=== PATIENT | female | born 1955 | race African-American/Black ===

== ENCOUNTER 2018-11-24 09:15 | Inpatient (IN) | payer OTHER ==
[~2018-11-24] VITALS: Ht 172.7 cm; Wt 62.1 kg
--- NOTE | ~2018-11-24 | EMS ---
[facility] [address] [place] [address] EMS Patient Care Report Name: LOY YBARRA Room #: REG [facility] Garcia#: [id number] Admission: 11/24/18 Attend Phys: Discharge: Date of : 55 Report #: [id number] THIS REPORT FOR: //name// Report Transmitted: 11/24/2018 10:16 EMS Care Summary [place], [place]/[facility] Incident [id number] @ 11/24/2018 08:46 Incident Location [address] Patient LOY MENDEZ Female, 62 Years 1955 Patient Address [facility] [address] [place] [address] Patient History Sickle Cell Disease, Chief Complaint Sickle cell crisis Disposition Transported No Lights/[place] Dispatch Reason Sick Person Transported To [facility] Narrative 62 y/o female with sickle cell crisis with abdominal pain. On arrival [facility] with [facility] staff on [facility]. Pt stated she woke up this morning with nausea/vomiting and right upper abdominal pain. Pt stated that she has sickle cell disease and that she is having a sickle cell crisis. Pt stated she would go to [facility] ED. P41/EMS transferred pt to stretcher and into ambulance. Once in ambulance EMS performed a 12-lead ECG and attempted an IV. [address] [address] EMS Patient Care Report Name: LOY YBARRA Room #: REG [facility].#: [id number] Admission: 11/24/18 Attend Phys: Discharge: Date of : 55 Report #: [id number] EMS monitored pt/VS/ECG en route to [facility] ED. Transferred care of pt to [facility] ED RN without incident. Initial Vitals @09:05P: 139,SpO2: 97, @09:10P: 146,BP: 120/82,SpO2: 100, @09:02P: 139,R: 30,BP: 131/79,Pain: 10/10,GCS: 15,CO: 6,SpO2: 98,Revised Trauma: 11, Assessments @08:56MENTAL:No Abnormalities,SKIN:No Abnormalities,HEENT:Head/Face: No Abnormalities,Eyes: No Abnormalities,Neck/Airway: No Abnormalities,LUNG SOUNDS:General: Vomiting,General: Nausea,Right Upper: Other,Left Upper: No Abnormalities,Left Lower: No Abnormalities,Right Lower: No Abnormalities,ABDOMEN:General: Vomiting,General: Nausea,Right Upper: Other,Left Upper: No Abnormalities,Left Lower: No Abnormalities,Right Lower: No Abnormalities,PELVIS//GI:No Abnormalities,EXTREMITIES:Capillary Refill: Left Upper: < 2 Sec,Left Arm: No Abnormalities,Right Arm: No Abnormalities,Left Leg: No Abnormalities,Right Leg: No Abnormalities,PULSE:Radial: 2+ Normal,NEURO:No Abnormalities, Impression Sickle Cell Crisis Procedures @09:0512-Lead ECGResponse: UnchangedSucceeded@08:56ALS AssessmentResponse: WorseSucceeded@09:03Saline Lock 10cc (20 ga) Site: Antecubital-LeftResponse: UnchangedSucceeded@PTAOxygen FlowRate: 4 Device: Nasal Cannula (NC) Response: UnchangedSucceeded 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 [address] [place] [address] EMS Patient Care Report Name: LOY YBARRA Room #: REG FREEMAN M.R.#: [id number] Admission: 11/24/18 Attend Phys: Discharge: Date of : 55 Report #: [id number] 09:10,BP: 120/82 M,PULSE: 146,RR: R,SPO2: 100 Ox,ETCO2: ,BG: ,PAIN: ,GCS: , 09:12,Depart Scene 09:13,At Destination 09:26,Call Closed Disclaimer v1.1 Copyright 2019 [employer] This EMS Care Summary contains data elements from the applicable legal record (which may be displayed differently). It is designed to provide pertinent information for the following purposes: continuity of care, clinical quality, and state data reporting. The complete legal record is available to ED staff and administrators of the receiving hospital in [employer] Patient Tracker. All data is provided "as is."
[2018-11-24 09:16] VITALS: BP 139/94
[2018-11-24 09:54] LABS: ABSOLUTE NEUTROPHILS 3.4 thou/uL (1.4-8.2); BASOPHILS 1.4 % (0.0-2.0); EOSINOPHILS 2.4 % (0.0-3.0); HEMATOCRIT 22.9 % (37.0-47.0); HEMOGLOBIN 8.2 gm/dL (12.0-15.0); MCHC 35.7 g/dL (28.0-37.0); MCV 109.4 fL (80.0-100.0); MONOCYTES 6.7 % (1.0-8.0); PLATELET COUNT 378 thou/uL (150-400); POLYS 55.5 % (36.0-66.0); RDW 28.2 % (10.5-14.5); WBC 6.1 thou/uL (4.0-11.0)
[2018-11-24 09:57] LABS: CALCIUM 10.2 mg/dL (8.5-10.1); CREATININE 1.3 mg/dL (0.6-1.0)
[2018-11-24 09:58] LABS: POTASSIUM 4.5 mmol/L (3.5-5.1)
[2018-11-24 10:08] LABS: ALBUMIN 3.9 g/dL (3.4-5.0); TOTAL BILIRUBIN 1.3 mg/dL (<0.1-1.0); TOTAL PROTEIN 9.3 g/dL (6.4-8.2); TROPONIN-I 0.07 ng/mL (<0.06)
[2018-11-24 10:32] LABS: ANISOCYTOSIS 1+; MACROCYTES 1+
[2018-11-24 10:54] LABS: OBSERVED RETIC COUNT 1.28 % (0.6-2.6)
[2018-11-24 13:33] LABS: URINE BILIRUBIN NEGATIVE (Negative); URINE BLOOD NEGATIVE (Negative); URINE CLARITY CLEAR; URINE COLOR YELLOW; URINE GLUCOSE-RANDOM* NEGATIVE (Negative); URINE KETONES NEGATIVE (Negative); URINE NITRITE-REFLEX NEGATIVE (Negative); URINE PROTEIN (DIPSTICK) NEGATIVE (Negative)
[2018-11-24 13:34] LABS: URINE LEUKOCYTES-REFLEX 2+ (Negative)
[2018-11-24 13:42] LABS: AMORPHOUS PHOSPHATES Few /LPF (None Seen); BACTERIA-REFLEX 1-9 Few /HPF (None Seen); CASTS None Seen /LPF (None Seen); SQUAMOUS None Seen /LPF (0-3); URINE RBC >20 Many /HPF (0-2)
[2018-11-24 14:01] VITALS: BP 125/90
[2018-11-24 14:25] VITALS: BP 126/84
[2018-11-24 14:45] VITALS: BP 139/93
--- NOTE | 2018-11-24 15:46 | NUR ---
PT ARRIVED TO UNIT AT APPROX 1500 BY ER STAFF ACCOMPANIED BY FAMILY. PT ALERT AND ORIENTED, VSS, PT C/O PAIN IN ABDOMEN- WILL MANAGE WITH PAIN MEDS PER MAR. ADMISSION COMPLETE. TELE PUT ON, ADMIT STRIP PRINTED AND DOCUMENTED. FAMILY AT BEDSIDE. WILL CONTINUE TO MONITOR AND FOLLOW POC.
[2018-11-24 18:24] VITALS: BP 149/77
--- NOTE | 2018-11-24 18:46 | NUR ---
PT CURRENTLY RESTING IN BED, FAMILY IN ROOM. C/O PAIN- MANAGED WITH PAIN MEDS PER JUN. RECORDS FAXED FROM [facility]ART. 02 SATS WNL ON 2L O2. DENIES SOB/CP. CONTINUOUS PULSE OX ON. SR ON MONITOR. WILL CONT TO MONITOR AND FOLLOW POC.
[2018-11-24 19:53] VITALS: BP 120/67
[2018-11-24] MEDS ORDERED: FOLIC ACID1 MG PO (20:13)
[2018-11-24] MEDS ORDERED: HYDREA500 MG PO (20:14)
[2018-11-24] MEDS ORDERED: D-20002000 UNIT PO (20:18)
[2018-11-24] MEDS ORDERED: ONDANSETRON HCL4 M2 PO (20:20)
[2018-11-24] MEDS ORDERED: TOPROL XL25 MG PO (20:20)
[2018-11-24] MEDS ORDERED: ZOFRAN4 MG PO (20:21)
[2018-11-24] MEDS ORDERED: OXYCODONE HCL10 MG PO (20:22)
[2018-11-24] MEDS ORDERED: OXYCONTIN20 M1 PO (20:23)
[2018-11-24] MEDS ORDERED: BENADRYL A12.5 MG/5 PO (20:24)
[2018-11-24] MEDS ORDERED: LIPITOR80 MG PO (20:25)
--- NOTE | 2018-11-25 04:06 | NUR ---
ASSESSMENT DOCUMENTED.PT BEEN RESTING IN NO ACUTE DISTRESS AT THIS TIME, SON AT BEDSIDE.O2 AT 3LITERS PNC,ON CONT PULSE OXIMETRY,SATS ADEQUATE.PT REPORTED SEVERE PAIN EARLIER IN THE SHIFT PAIN MEDS SCHEDULED AND PRN GIVEN ALONG WITH BENADYRL,PT VOICED PAIN RELIEF EVENTUALLY.PT REPORTED PAIN TO RUQ ABD,LOWER BACK AND ARMS.CURRENTLY SLEEPING W/O DISTRESS.IVF INFUSING.ON ANTIBIOTICS FOR PNA/UTI.VOIDING ADEQUATELY
[2018-11-25 05:01] VITALS: BP 121/73
[2018-11-25 05:17] LABS: MCH 38.9 pg (26.0-34.0); MCHC 35.3 g/dL (28.0-37.0); MCV 110.3 fL (80.0-100.0); RBC 1.65 mil/uL (4.20-5.00); WBC 7.5 thou/uL (4.0-11.0)
[2018-11-25 05:25] LABS: HEMATOCRIT 18.2 % (37.0-47.0); HEMOGLOBIN 6.4 gm/dL (12.0-15.0)
[2018-11-25 05:34] LABS: CALCIUM 8.9 mg/dL (8.5-10.1); CREATININE 1.5 mg/dL (0.6-1.0); POTASSIUM 4.7 mmol/L (3.5-5.1)
[2018-11-25 06:03] LABS: HEMOGLOBIN 6.2 gm/dL (12.0-15.0)
[2018-11-25 06:04] LABS: HEMATOCRIT 17.8 % (37.0-47.0)
[2018-11-25 08:45] VITALS: BP 112/65
[2018-11-25 09:48] VITALS: BP 125/77; BP 132/78
--- NOTE | 2018-11-25 11:55 | NUR ---
dp sent h&p to [facility] , patient should go back to snf in a couple of days, dp notified Jose M at .
--- NOTE | 2018-11-25 12:26 | NUR ---
Case opened to follow for dc planning. Chart reviewed and life underwriter visited with the pt and her family at bedside. She indicates that she was recently admitted to [facility] for skilled medicare rehab. Her goal is to return home indep. She lives alone, is on ss disability and uses a rwalker. She is being treated for sickle cell crisis, pneumonia and uti. PT/OT evals are pending. Message left for [facility] admissions to confirm they are able to accept the pt for readmission should she be dc ready this or Wednesday. She notes her emergency contacts/DPOA are Kaushik Dumont and Clay Hussein. She plans to return to the snf for continued rehab once medically cleared. Dc personal financial planner to fax a clinical update to the SNF. Cm role introduced. Will follow.
[2018-11-25 13:34] VITALS: BP 135/87
--- NOTE | 2018-11-25 16:38 | NUR ---
ASSESSMENT CHARTED. PT ALERT AND ORIENTED. VSS. HGB 6.2 THIS AM. RECEIVED I UNIT OF BLOOD WITH NO REACTION. HGB 8.1 AFTER TRANSFUSION. PRN PAIN MED GIVEN WITH PARTIAL RELIEF. WILL CONTINUE TO MONITOR.
[2018-11-25 18:00] VITALS: BP 123/73
--- NOTE | 2018-11-25 18:07 | EKG ---
[address] [place] [address] ELECTROCARDIOGRAM REPORT Name: LOY YBARRA Room #: 210-P ADM IN M.R.#: [id number] Admission: 11/24/18 Attend Phys: Jose Raul Saxena MD Discharge: Date of : 55 Report #: [id number] THIS REPORT FOR: //name// [facility] ED Test Date: 2018-11-24 Test Time: 09:27:26 Pat Name: LOY ZAMORA Department: Room: 210 Gender: F Paste Thinner: : 1955 Requested By: Cecil Menendez Order Number: [id number] MD: Indra Blankenship Measurements Intervals [place] Rate: 119 P: 71 IA: 141 QRS: 36 QRSD: 95 T: 41 QT: 325 QTc: 458 Interpretive Statements Sinus tachycardia Nonspecific ST segment abnormality No previous ECG available for comparison Electronically Signed On 11-25-2018 18:06:53 CDT by Indra Blankenship [email or web address] <ELECTRONICALLY SIGNED> By: Indra Blankenship MD, [facility] 11/25/18 1806 0927 09 Indra Blankenship MD, FAC /EPI
[2018-11-25 20:20] VITALS: BP 123/70
[2018-11-26 04:42] VITALS: BP 123/70
--- NOTE | 2018-11-26 05:37 | NUR ---
ASSUME CARE 1900. PT/VITALS STABLE. CONSTANT RUQ PAIN. UP WITH ASSISTANCE TO BSC. PT VERY WEAK. ASSESSMENT CHARTED. PROGRESSING QWELL WITH POC. PLAN IS TO CONTINUE TO MANAGE PAIN AND KEEP PT WELL HYDRATED TO PREVENT SICKLE CELL CRISIS. WILL CONTINUE TO MONITOR AND FOLLOW WITH POC
[2018-11-26 07:00] LABS: HEMATOCRIT 20.7 % (37.0-47.0); HEMOGLOBIN 7.4 gm/dL (12.0-15.0); MCH 37.6 pg (26.0-34.0); MCHC 35.6 g/dL (28.0-37.0); MCV 105.8 fL (80.0-100.0); RBC 1.95 mil/uL (4.20-5.00); RDW 27.1 % (10.5-14.5)
[2018-11-26 07:10] LABS: ANION GAP < 0 mmol/L (7-16); BUN 13 mg/dL (7-18); CALCIUM 8.9 mg/dL (8.5-10.1); CHLORIDE 95 mmol/L (98-107); CO2 25 mmol/L (21-32); CREATININE 1.2 mg/dL (0.6-1.0); GLUCOSE 85 mg/dL (74-106)
[2018-11-26 07:17] LABS: SODIUM 119 mmol/L (136-145)
[2018-11-26 08:03] VITALS: BP 134/80
[2018-11-26 09:28] LABS: ALBUMIN 3.2 g/dL (3.4-5.0); PHOSPHORUS 3.7 mg/dL (2.5-4.9)
[2018-11-26 11:28] LABS: CALCIUM 8.9 mg/dL (8.5-10.1); CREATININE 1.3 mg/dL (0.6-1.0); POTASSIUM 4.3 mmol/L (3.5-5.1)
[2018-11-26 11:32] LABS: ALBUMIN 3.2 g/dL (3.4-5.0); PHOSPHORUS 3.9 mg/dL (2.5-4.9)
[2018-11-26 16:32] VITALS: BP 121/73
--- NOTE | 2018-11-26 16:54 | NUR ---
ASSUMED CARE AT 0700, SHIFT ASSESSMENT DONE, MEDS GIVEN, VSS. REPORTED PAIN, PRN PAIN MEDS GIVEN. UP WITH STANDBY, REMAINS ON 3L NC. FLUIDS HAS BEEN DISCONTINUED. WILL CONTINUE TO ASSESS AND ASSIST WITH ADLs NEEDED.
[2018-11-26 19:06] VITALS: BP 95/62
[2018-11-26 19:15] VITALS: BP 108/41
--- NOTE | 2018-11-27 03:09 | NUR ---
ASSESSMENT DOCUMENTED.PT BEEN RESTING IN NO ACUTE DISTRESS,FAMILY AT BEDSIDE.VSS.PAIN MEDS GIVEN PER ORDERS.PT REPORTS SICKLE CELL PAIN IMPROVING.DENIES PAIN MUTIPLE TIMES THIS SHIFT WHEN ASSESSED.O2 AT 2LITERS PNC.SATS ADEQUATE.PT DENIES ANY NEEDS AT THIS TIME.WILL CONT TO MONITOR PER POC.
[2018-11-27 03:20] VITALS: BP 121/57
[2018-11-27 06:19] LABS: ALBUMIN 3.1 g/dL (3.4-5.0); CALCIUM 8.5 mg/dL (8.5-10.1); CREATININE 1.3 mg/dL (0.6-1.0)
[2018-11-27 07:20] VITALS: BP 107/74
[2018-11-27 11:05] VITALS: BP 99/56
[2018-11-27 15:25] VITALS: BP 91/58
--- NOTE | 2018-11-27 17:52 | NUR ---
ASSUMED CARE OF PT AT SHIFT CHANGE. ASSESSEMENT CHARTED. MEDS GIVEN PER JUN. A&O. VSS. PT VISITED WITH FAMILY AND REST COMFORTABLY MOST OF DAY. PAIN MEDS GIVEN PROMPTLY AND PT RESPONDED WELL. PT DENIES NEEDS AT THIS TIME. WILL CONTINUE TO MONITOR AND FOLLOW POC.
[2018-11-27 19:15] VITALS: BP 110/62
--- NOTE | 2018-11-27 19:15 | NUR ---
ASSESSMENT AND CHARTING DONE BY NURSE ZACH DEL ROSARIO REVIEWED, AGREE WITH ASSESSMENT AND CHARTING.
[2018-11-28 04:40] VITALS: BP 117/71
[2018-11-28 04:53] LABS: HEMATOCRIT 21.1 % (37.0-47.0); HEMOGLOBIN 7.4 gm/dL (12.0-15.0); MCH 37.2 pg (26.0-34.0); MCHC 34.9 g/dL (28.0-37.0); MCV 106.5 fL (80.0-100.0); RBC 1.98 mil/uL (4.20-5.00); RDW 27.2 % (10.5-14.5); WBC 7.4 thou/uL (4.0-11.0)
[2018-11-28 05:14] LABS: ALBUMIN 3.1 g/dL (3.4-5.0); CALCIUM 8.4 mg/dL (8.5-10.1); CREATININE 1.1 mg/dL (0.6-1.0); POTASSIUM 4.2 mmol/L (3.5-5.1); TOTAL PROTEIN 6.9 g/dL (6.4-8.2)
--- NOTE | 2018-11-28 08:07 | NUR ---
A/O X 4.UP WITH STANDBY ASSIST TO THE BATHROOM.PAIN FAIRLY CONTROLLED.O2 3L NASAL CANNULA.DENIES NEEDS AT THIS TIME.WILL MONITOR AND CONTINUE POC.
[2018-11-28 08:34] VITALS: BP 111/52
--- NOTE | 2018-11-28 12:25 | NUR ---
FAXED CLINICAL UPDATE TO [facility] SPOKE WITH HANANE IN ADM SHE RECEIVED AND ANTICIPATE DC IN 1-2 DAYS. DCP TO FOLLOW.
[2018-11-28 16:25] VITALS: BP 107/60
--- NOTE | 2018-11-28 17:40 | NUR ---
ASSUMED CARE AT SHIFT CHANGE, ALERT AND ORIENTED. PAIN UNDER CONTROL. PROGRESSING TOWARD GOALS, AND WILL CONTINUE WITH POC.
[2018-11-28 19:46] VITALS: BP 115/58
[2018-11-29 04:03] VITALS: BP 119/67
--- NOTE | 2018-11-29 06:43 | NUR ---
PT RESTING QUIETLY IN ROOM THRU THE NOC AFTER SCHEDULED PAIN MED GIVEN, VSS, HOPING TO GO HOME TODAY WILL CON'T TO MONITOR PER PPOC.
[2018-11-29 07:15] VITALS: BP 109/71
[2018-11-29 08:15] VITALS: BP 124/90
[2018-11-29 11:19] VITALS: BP 111/68
[2018-11-29] MEDS ORDERED: CEFUROXIME500 MG PO (11:38)
--- NOTE | 2018-11-29 16:27 | NUR ---
FAXED REFERRAL TO [facility] FOR HOME O2 SPOKE WITH JHON IN INTAKE SHE RECEIVED REFERRAL AND HAS A TANK BEING DELIVERED TO PT'S RM PRIOR TO DC TODAY NOTIFIED [facility] OF REFERRAL PT TO DC TODAY THEY WILL REVIEW.
[2018-11-29 16:53] VITALS: BP 111/68
--- NOTE | 2018-11-29 16:54 | NUR ---
PT DISCHARGING TODAY TO HOME WITH [facility] SPOKE INTAKE AND THEY WILL NOTIFY PT TIME OF VISITS.
--- NOTE | 2018-11-29 17:39 | NUR ---
DISCHARGE AND MEDICATION INSTRUCTIONS GIVEN TO PATIENT, SHE VERBALIZED UNDERSTANDING.
== END 2018-11-29 18:15 | disposition home health service (06) | DRG 871 ==
LOC: ER 09:15 → EROBS 13:27 → 2N 13:27 → ER 14:25 → 2N 14:35 → ENTRNSPT 11-29 17:44 → 2N 11-29 18:15
PROVIDERS: Emergency Medicine; Hospitalist; Nurse Practitioner Family; ADMIT Hospitalist
PROC: 30233N1 Transfusion of Nonautologous Red Blood Cells into Peripheral Vein, Percutaneous Approach (ICD-10-PCS; principal; 2018-11-25)
DX: A41.9 Sepsis, unspecified organism (principal); D57.00 Hb-SS disease with crisis, unspecified; J18.9 Pneumonia, unspecified organism; N39.0 Urinary tract infection, site not specified; E87.1 Hypo-osmolality and hyponatremia; E78.5 Hyperlipidemia, unspecified; D63.8 Anemia in other chronic diseases classified elsewhere; B96.20 Unspecified Escherichia coli [E. coli] as the cause of diseases classified elsewhere; Z88.1 Allergy status to other antibiotic agents; Z88.8 Allergy status to other drugs, medicaments and biological substances; Z91.040 Latex allergy status; Z79.899 Other long term (current) drug therapy; Z99.81 Dependence on supplemental oxygen; Z90.49 Acquired absence of other specified parts of digestive tract
CPT/HCPCS: 10081; 10797